=== PATIENT | male | born 1970 | race Caucasian/White ===

== ENCOUNTER → 2024-06-14 | Emergency (ER) | payer OTHER ==
[~2024-06-14] VITALS: Ht 175.3 cm; Wt 81.6 kg
[~2024-06-14] MED LIST: ACETAMINOPHEN 500 MG GEL..CAP PO ONE; CETIRIZINE HCL 5 MG/5 ML ML PO ONE; CETIRIZINE HCL 5MG/5ML BLIST.PACK PO ONE; CLONAZEPAM0.125 MG; GUAIFENESIN/DEXTROMETHORPHAN 10ML BLIST.PACK PO ONE; ONDANSETRON HCL 2 MG/ML VIAL IV ONE; ONDANSETRON HCL 2 MG/ML VIAL ONE; ONDANSETRON ODT8 MG PO; OSEL75CA PO; OSELTAMIVIR PHOSPHATE 75 MG CAPSULE PO ONE; PEPCID AC20 MG PO; TUSNEL LIQUID178 ML PO; [UNRECOGNIZED DRUG - OTHER]
[2024-06-14 21:14] LABS: HEMATOCRIT 37.6 % (39.0-48.0); HEMOGLOBIN 13.3 g/dL (13-16.00); MEAN CELL VOLUME 82.9 fL (80.0-100.00); MEAN CORPUSCULAR HEMOGLOBIN 29.2 pg (27.00-32.0); MEAN CORPUSCULAR HGB CONC 35.3 g/dl (32.0-36.0); PLATELET COUNT 146 K/uL (150-450); RED BLOOD COUNT 4.54 M/uL (4.00-6.00); RED CELL DISTRIBUTION WIDTH 13.5 % (11.5-14.5)
== END | disposition home or self-care (01) ==
LOC: ER 20:07
PROVIDERS: General Practice
DX: R53.81 Other malaise (principal); J10.1 Influenza due to other identified influenza virus with other respiratory manifestations; R50.9 Fever, unspecified; Z20.822 Contact with and (suspected) exposure to COVID-19; Z88.0 Allergy status to penicillin